=== PATIENT | male | born 1995 | race Native Hawaiian/Other Pacific Islander ===

== ENCOUNTER 2018-08-31 22:49 | Emergency (ER) | payer OTHER ==
[2018-08-31 22:55] VITALS: O2SAT 98
--- NOTE | 2018-08-31 23:09 | ED PDOC ---
HPI: Wound Care - HPI Time Seen by Provider: 08/31/18 22:56 Chief Complaint (Nursing): Abnormal Skin Integrity Chief Complaint (Provider): left hand second digit laceration History Per: Patient Exam Limitations: no limitations Onset/Duration Of Symptoms: Mins Additional Complaint(s): 23 y/o male presents to ED for evaluation of laceration to left hand second digit sustained prior to arrival. Patient states he was cutting a sandwich with a knife and it slipped and hit his finger. Denies numbness/weakness left upper extremity, limitation of movement. Tetanus up to date. Past Medical History Reviewed: Historical Data, Nursing Documentation, Vital Signs Vital Signs: Last Vital Signs Temp 98.6 F 08/31/18 22:52 Pulse 90 08/31/18 22:52 Resp 17 08/31/18 22:52 BP 160/99 H 08/31/18 22:52 Pulse Ox 98 08/31/18 22:52 - Medical History PMH: No Chronic Diseases - Surgical History Surgical History: Tonsillectomy - Family History Family History: States: No Known Family Hx - Living Arrangements Living Arrangements: With Family - Allergies Allergies/Adverse Reactions: Allergies Allergy/AdvReac Type Severity Reaction Status Date / Time No Known Allergies Allergy Verified 08/31/18 22:55 Review of Systems ROS Statement: Except As Marked, All Systems Reviewed And Found Negative Musculoskeletal: Positive for: Hand Pain (left hand 2nd digit laceration) Physical Exam - Reviewed Nursing Documentation Reviewed: Yes Vital Signs Reviewed: Yes - Physical Exam Appears: Positive for: Well, Non-toxic, No Acute Distress Pulses-Radial (L): 2+ Pulses-Radial (R): 2+ Extremity: Positive for: Normal ROM, Other (1.5cm "V" shape superficial skin flap laceration dorsal lateral aspect left hand 2nd digit. Wound edges together. No active bleeding. Distal NV/motor intact) Neurologic/Psych: Positive for: Alert, Oriented (x3). Negative for: Motor/Sensory Deficits - ECG O2 Sat by Pulse Oximetry: 98 Procedure: Wound Repair - Time Performed Time Performed: 23:10 - Time Out Time Out: Side verified, Site verified, Patient ID confirmed - Consent Obtained Consent obtained: Verbal - Performed by Performed by: Mid-level Provider - Indications Indication(s):: Laceration - Location Finger:: Left, Index Shape:: Wedge Depth:: Epidermis - Debris Debris:: None - Irrigated Irrigated with ml of normal saline: 100mL - Wound repair method Brenda:: Tissue glue, Steri-strips - Muscle repiar layer closed with Muscle repair layer closed with:: Dressing applied (finger splint applied), Tetanus up to date - Patient tolerated procedure Patient Tolerated Procedure:: Well Medical Decision Making Medical Decision Making: Patient educated on wound care Advised follow up PMD within 2-3 days Return precautions given Disposition - Clinical Impression Clinical Impression: Finger laceration - Patient ED Disposition Is Patient to be Admitted: No Counseled Patient/Family Regarding: Diagnosis, Need For Followup - Disposition Disposition: Routine/Home Disposition Time: 23:23 Condition: IMPROVED Instructions: Laceration Repair With Glue (DC) Forms: [employer] ([place])
[2018-08-31 23:36] VITALS: BP 141/84; PULSE 66; RESP 18; TEMP 98.2
== END 2018-08-31 23:36 | disposition home or self-care (01) ==
LOC: H.ER 22:49
DX: S61.221A Laceration with foreign body of left index finger without damage to nail, initial encounter (principal); W26.0XXA Contact with knife, initial encounter; Y92.89 Other specified places as the place of occurrence of the external cause